=== PATIENT | female | born 1940 | race Caucasian/White ===

== ENCOUNTER → 2019-07-04 | Outpatient (CLI) | payer OTHER ==
[~2019-07-04] MED LIST: ACYCLOVIR400 MG PO; ALBUTEROL0.09 MG/A2 IH; ATIVAN0.5 MG PO; CIPRO250 MG PO; COQ(10)1010 MG PO; DICYCLOMINE HCL10 MG PO; HYDROCODONE BIT1 T11 PO; LEVAQUIN750 MG PO; MACROBID100 M1 PO; METOPROLOL25 MG PO; PREDNICOT20 MG PO; SIMVASTATIN40 MG PO; XANAX0.25 MG PO
== END | disposition home or self-care (01) ==
LOC: RAD 11:36
DX: M51.37 Other intervertebral disc degeneration, lumbosacral region (principal); M85.88 Other specified disorders of bone density and structure, other site

== ENCOUNTER 2019-12-13 20:51 | Emergency (ER) | payer OTHER ==
[~2019-12-13] VITALS: Ht 152.4 cm; Wt 54.4 kg
[2019-12-13 20:57] VITALS: BP 172/88
[2019-12-13 21:21] LABS: BASO % 0.5 % (0.0-1.0); EOS # 0.2 10*3/uL (0.0-0.4); EOS % 1.9 % (1.0-4.0); HEMATOCRIT 40.7 % (37.0-47.0); LYMPH # 2.7 10*3/uL (1.3-4.4); MEAN CELL VOLUME 87.5 fl (81.0-99.0); MEAN CORPUSCULAR HGB CONC 33.2 g/dl (33.0-37.0); MEAN PLATELET VOLUME 9.2 fl (9.6-12.3); MONO # 0.9 10*3/uL (0.1-1.0); MONO % 10.3 % (3.0-9.0); NEUT # 4.7 10*3/uL (2.3-7.9); NEUT % 55.1 % (47.0-73.0); PLATELET COUNT AUTOMATED 264 10*3/uL (130-400); RED BLOOD COUNT 4.65 10*6/uL (4.10-5.10); RED CELL DISTRI WIDTH 12.9 % (0-14.5); WHITE BLOOD COUNT 8.5 10*3/uL (4.8-10.8)
[2019-12-13 21:36] LABS: ALBUMIN 3.6 gm/dl (3.1-4.5); ALKALINE PHOSPHATASE 100 U/L (45-117); BUN 17 mg/dl (7-24); CHLORIDE 101 mmol/L (98-107); CREATININE 0.94 mg/dL (0.55-1.02); POTASSIUM 3.4 mmol/L (3.5-5.1); SGOT/AST 22 IU/L (3-35); SGPT/ALT 17 U/L (12-78); SODIUM 134 mmol/L (136-145); TOTAL PROTEIN 7.1 gm/dL (6.4-8.2); URIC ACID 5.1 mg/dL (2.6-6.0)
[2019-12-13] MEDS ORDERED: INDOMETHACIN50 MG PO (23:01)
== END 2019-12-13 23:22 | disposition home or self-care (01) ==
LOC: ED 20:51
PROVIDERS: Nurse Practitioner Family
DX: M25.571 Pain in right ankle and joints of right foot (principal); I10 Essential (primary) hypertension; E78.00 Pure hypercholesterolemia, unspecified; Z90.710 Acquired absence of both cervix and uterus; Z88.2 Allergy status to sulfonamides; Z79.899 Other long term (current) drug therapy

== ENCOUNTER → 2020-04-14 | Outpatient (CLI) | payer OTHER ==
[~2020-04-14] MED LIST changes: +INDOMETHACIN50 MG PO
[2020-04-14 11:37] LABS: BASO # 0.1 10*3/uL (0.0-0.1); BASO % 0.5 % (0.0-1.0); EOS # 0.1 10*3/uL (0.0-0.4); HEMATOCRIT 43.2 % (37.0-47.0); LYMPH # 1.7 10*3/uL (1.3-4.4); LYMPH % 16.1 % (27.0-41.0); MEAN CELL VOLUME 86.1 fl (81.0-99.0); MEAN CORPUSCULAR HGB 27.9 pg (27.0-31.0); MEAN CORPUSCULAR HGB CONC 32.4 g/dl (33.0-37.0); MONO # 0.7 10*3/uL (0.1-1.0); MONO % 6.4 % (3.0-9.0); NEUT % 75.6 % (47.0-73.0); PLATELET COUNT AUTOMATED 348 10*3/uL (130-400); RED BLOOD COUNT 5.02 10*6/uL (4.10-5.10); RED CELL DISTRI WIDTH 12.4 % (0-14.5); WHITE BLOOD COUNT 10.5 10*3/uL (4.8-10.8)
[2020-04-15 07:06] LABS: HEP B CORE AB, IGM Negative (Negative); HEPATITIS B SURFACE AG Negative (Negative); HEPATITIS C VIRUS ANTIBODY <0.1 s/co (0.0-0.9)
[2020-04-15 08:08] LABS: RHEUMATOID ARTHRITIS FACTOR <10.0 IU/mL (0.0-13.9)
[2020-04-15 13:09] LABS: ANTI-RNP ANTIBODIES <0.2 AI (0.0-0.9)
[2020-04-16 03:06] LABS: CCP ANTIBODIES IGG/IGA 75 units (0-19)
[2020-04-16 16:11] LABS: PTT-LA 35.7 sec (0.0-51.9)
[2020-04-17 08:11] LABS: DVVTMIXRFX CHG; LUPUS DRVVT 55.1 sec (0.0-47.0)
[2020-04-17 09:06] LABS: LUPUS REFLEX INTERPRETATION Comment: (.)
[2020-04-20 12:07] LABS: HLA-B27 ANTIGEN Negative (.)
== END | disposition home or self-care (01) ==
LOC: LAB 10:51
PROVIDERS: ATTEND Orthopaedic Surgery
DX: I10 Essential (primary) hypertension (principal); M19.90 Unspecified osteoarthritis, unspecified site; R70.0 Elevated erythrocyte sedimentation rate; R53.83 Other fatigue

== ENCOUNTER → 2020-09-03 | Outpatient (CLI) | payer OTHER | END | disposition home or self-care (01) | LOC: US 09:27 | PROVIDERS: ATTEND Orthopaedic Surgery | DX: R60.0 Localized edema (principal) ==

== ENCOUNTER 2022-11-15 22:30 | Emergency (ER) | payer OTHER ==
[~2022-11-15] VITALS: Ht 162.5 cm; Wt 74.8 kg
[2022-11-15 22:45] VITALS: BP 169/69
[2022-11-15] MEDS ORDERED: CITALOPRAM40 MG PO (22:57)
[2022-11-15] MEDS ORDERED: LEVETIRACETAM500 MG PO (22:58)
[2022-11-15] MEDS ORDERED: LOSARTAN POTASS25 M1 PO (23:00)
[2022-11-15] MEDS ORDERED: PRAVASTATIN SOD40 MG PO (23:00)
[2022-11-15] MEDS ORDERED: NAPROXEN250 MG PO (23:36)
== END 2022-11-16 00:15 | disposition home or self-care (01) ==
LOC: ED 22:30
DX: S93.401A Sprain of unspecified ligament of right ankle, initial encounter (principal); I10 Essential (primary) hypertension; E78.00 Pure hypercholesterolemia, unspecified; Z88.2 Allergy status to sulfonamides; Z90.710 Acquired absence of both cervix and uterus; Z98.890 Other specified postprocedural states; X50.1XXA Overexertion from prolonged static or awkward postures, initial encounter; Y93.89 Activity, other specified; Y92.009 Unspecified place in unspecified non-institutional (private) residence as the place of occurrence of the external cause; Y99.8 Other external cause status

== ENCOUNTER 2023-03-06 15:55 | Emergency (ER) | payer OTHER ==
[~2023-03-06] VITALS: Ht 154.9 cm; Wt 59.0 kg
[~2023-03-06 15:55] MED LIST changes: +CITALOPRAM40 MG PO; +LEVETIRACETAM500 MG PO; +LOSARTAN POTASS25 M1 PO; +NAPROXEN250 MG PO; +PRAVASTATIN SOD40 MG PO
[2023-03-06] MEDS ORDERED: VITAMIN B-121000 MC1 SL (16:07)
[2023-03-06 16:34] LABS: BASO % 0.6 % (0.0-1.0); EOS # 0.2 10*3/uL (0.0-0.4); EOS % 2.9 % (1.0-4.0); HEMATOCRIT 44.9 % (37.0-47.0); LYMPH # 2.6 10*3/uL (1.3-4.4); LYMPH % 37.9 % (27.0-41.0); MEAN CELL VOLUME 90.7 fl (81.0-99.0); MEAN CORPUSCULAR HGB 29.7 pg (27.0-31.0); MEAN CORPUSCULAR HGB CONC 32.7 g/dl (33.0-37.0); MEAN PLATELET VOLUME 9.6 fl (9.6-12.3); MONO # 0.6 10*3/uL (0.1-1.0); MONO % 8.1 % (3.0-9.0); NEUT # 3.4 10*3/uL (2.3-7.9); NEUT % 50.4 % (47.0-73.0); PLATELET COUNT AUTOMATED 218 10*3/uL (130-400); RED BLOOD COUNT 4.95 10*6/uL (4.10-5.10); RED CELL DISTRI WIDTH 13.2 % (0-14.5); WHITE BLOOD COUNT 6.8 10*3/uL (4.8-10.8)
[2023-03-06 17:02] LABS: ALKALINE PHOSPHATASE 106 U/L (46-116); BUN 13 mg/dl (9-23); CHLORIDE 108 mmol/L (98-107); SGPT/ALT 10 U/L (10-49); TOTAL PROTEIN 6.7 gm/dL (6.0-8.0)
== END 2023-03-06 18:48 | disposition home or self-care (01) ==
LOC: ED 15:55
PROVIDERS: Student in an Organized Health Care Education/Training Program
DX: M25.512 Pain in left shoulder (principal); R07.89 Other chest pain; I10 Essential (primary) hypertension; E78.00 Pure hypercholesterolemia, unspecified; Z88.2 Allergy status to sulfonamides; Z90.710 Acquired absence of both cervix and uterus; Z98.890 Other specified postprocedural states

== ENCOUNTER → 2023-07-19 | Outpatient (CLI) | payer OTHER ==
[~2023-07-19] MED LIST changes: +VITAMIN B-121000 MC1 SL
== END | disposition home or self-care (01) ==
LOC: CARD 13:17
PROVIDERS: ATTEND Internal Medicine
DX: I51.7 Cardiomegaly (principal); R07.9 Chest pain, unspecified

== ENCOUNTER → 2023-07-27 | Outpatient (CLI) | payer OTHER ==
[~2023-07-27] MED LIST changes: +KEPPRA500 MG PO; +Regadenoson 0.4 MG/5 ML SYR IV ONE; +VITAMIN D325 MCG PO
== END | disposition home or self-care (01) ==
LOC: CARD 01:08
PROVIDERS: ATTEND Internal Medicine
DX: R94.31 Abnormal electrocardiogram [ECG] [EKG] (principal); R07.9 Chest pain, unspecified

== ENCOUNTER 2023-10-31 21:34 | Emergency (ER) | payer OTHER ==
[~2023-10-31] VITALS: Ht 160 cm; Wt 59.0 kg
[~2023-10-31 21:34] MED LIST changes: -Regadenoson 0.4 MG/5 ML SYR IV ONE
[2023-10-31 22:08] LABS: BASO % 0.2 % (0.0-1.0); EOS # 0.5 10*3/uL (0.0-0.4); EOS % 4.9 % (1.0-4.0); HEMATOCRIT 40.8 % (37.0-47.0); LYMPH # 3.2 10*3/uL (1.3-4.4); LYMPH % 32.3 % (27.0-41.0); MEAN CELL VOLUME 90.9 fl (81.0-99.0); MEAN CORPUSCULAR HGB 28.7 pg (27.0-31.0); MEAN CORPUSCULAR HGB CONC 31.6 g/dl (33.0-37.0); MEAN PLATELET VOLUME 9.7 fl (9.6-12.3); MONO # 0.7 10*3/uL (0.1-1.0); MONO % 7.5 % (3.0-9.0); NEUT # 5.4 10*3/uL (2.3-7.9); NEUT % 54.9 % (47.0-73.0); PLATELET COUNT AUTOMATED 206 10*3/uL (130-400); RED BLOOD COUNT 4.49 10*6/uL (4.10-5.10); RED CELL DISTRI WIDTH 13.7 % (0-14.5); WHITE BLOOD COUNT 9.8 10*3/uL (4.8-10.8)
[2023-10-31 22:30] LABS: ALKALINE PHOSPHATASE 128 U/L (46-116); BUN 26 mg/dl (9-23); CHLORIDE 108 mmol/L (98-107); SGPT/ALT 10 U/L (5-49); TOTAL PROTEIN 6.4 gm/dL (6.0-8.0)
[2023-10-31 22:31] LABS: ACT PARTIAL THROMBO TIME 23.6 SECONDS (20.0-32.1)
[2023-10-31] MEDS ORDERED: SODIUM CHLORIDE 0.9% 100 ML BAG IV ONE (22:40)
[2023-10-31] MEDS ORDERED: IOHEXOL 350 MG/ML 100 ML VIAL IV ONE (22:40)
[2023-11-01] MEDS ORDERED: hydrALAZINE hydrochloride 20 MG/ML VIAL IV ONE (01:05)
[2023-11-01] MEDS ORDERED: niCARdipine hydrochloride 25 MG in SODIUM CHLORIDE 0.9% 240 ML IV SCH (03:30)
[2023-11-01 05:14] VITALS: BP 119/64
[2023-11-01] MEDS ORDERED: SODIUM CHLORIDE 0.9% 250 ML BAG IV ONE (07:32)
[2023-11-01] MEDS ORDERED: NICARDIPINE IV ONE (07:32)
== END 2023-11-01 05:44 ==
LOC: ED 21:34
PROVIDERS: Emergency Medicine
DX: I71.012 Dissection of descending thoracic aorta (principal); R07.89 Other chest pain; I10 Essential (primary) hypertension; Z88.2 Allergy status to sulfonamides; Z79.899 Other long term (current) drug therapy

== ENCOUNTER 2023-11-23 11:10 | Inpatient (IN) | payer MEDICARE ==
[~2023-11-23] VITALS: Ht 152.4 cm; Wt 56.7 kg
[2023-11-23] VITALS (8 sets, daily range): BP systolic 119–195; BP diastolic 58–95
[2023-11-23] MEDS ORDERED: VALSARTAN80 MG PO (11:29)
[2023-11-23] MEDS ORDERED: ZOLOFT50 MG PO (11:29)
[2023-11-23] MEDS ORDERED: MULTIVITAMINS1 EAC6 PO (11:30)
[2023-11-23] MEDS ORDERED: AMLODIPINE BES2.5 MG PO (11:31)
[2023-11-23] MEDS ORDERED: hydrALAZINE hydrochloride 20 MG/ML VIAL IV ONE (11:45)
[2023-11-23] MEDS ORDERED: LISINOPRIL 20 MG TAB PO ONE (11:50)
[2023-11-23 12:17] LABS: BASO # 0.1 10*3/uL (0.0-0.1); BASO % 1.1 % (0.0-1.0); EOS # 0.4 10*3/uL (0.0-0.4); EOS % 4.8 % (1.0-4.0); HEMATOCRIT 42.2 % (37.0-47.0); LYMPH # 1.6 10*3/uL (1.3-4.4); LYMPH % 20.7 % (27.0-41.0); MEAN CELL VOLUME 91.1 fl (81.0-99.0); MEAN CORPUSCULAR HGB 29.4 pg (27.0-31.0); MEAN CORPUSCULAR HGB CONC 32.2 g/dl (33.0-37.0); MEAN PLATELET VOLUME 9.6 fl (9.6-12.3); MONO # 0.6 10*3/uL (0.1-1.0); NEUT # 5.2 10*3/uL (2.3-7.9); NEUT % 66.1 % (47.0-73.0); PLATELET COUNT AUTOMATED 218 10*3/uL (130-400); RED BLOOD COUNT 4.63 10*6/uL (4.10-5.10); WHITE BLOOD COUNT 7.9 10*3/uL (4.8-10.8)
[2023-11-23 12:40] LABS: BUN 16 mg/dl (9-23); CHLORIDE 107 mmol/L (98-107); POTASSIUM 4.2 mmol/L (3.4-5.1)
[2023-11-23] MEDS ORDERED: Ondansetron Hydrochloride 4 MG/2 ML VIAL IV ONE (12:45)
[2023-11-23] MEDS ORDERED: NEXIUM40 MG PO (19:57)
[2023-11-23] MEDS ORDERED: NAPROSYN500 MG PO (19:58)
[2023-11-23] MEDS ORDERED: NAPROXEN 500 MG TAB PO PRN (20:10)
[2023-11-23] MEDS ORDERED: Metoprolol Tartrate 25 MG TAB PO SCH (22:00)
[2023-11-23] MEDS ORDERED: Losartan Potassium 50 MG TAB PO SCH (22:00)
[2023-11-24 05:50] VITALS: BP 130/60
[2023-11-24 06:14] LABS: BASO # 0.1 10*3/uL (0.0-0.1); BASO % 0.8 % (0.0-1.0); EOS # 0.5 10*3/uL (0.0-0.4); EOS % 6.1 % (1.0-4.0); HEMATOCRIT 39.2 % (37.0-47.0); LYMPH # 2.2 10*3/uL (1.3-4.4); MEAN CORPUSCULAR HGB 28.9 pg (27.0-31.0); MEAN CORPUSCULAR HGB CONC 31.4 g/dl (33.0-37.0); MEAN PLATELET VOLUME 9.6 fl (9.6-12.3); MONO # 0.7 10*3/uL (0.1-1.0); MONO % 8.8 % (3.0-9.0); PLATELET COUNT AUTOMATED 186 10*3/uL (130-400); RED BLOOD COUNT 4.26 10*6/uL (4.10-5.10); RED CELL DISTRI WIDTH 14.4 % (0-14.5); WHITE BLOOD COUNT 7.4 10*3/uL (4.8-10.8)
[2023-11-24 06:48] LABS: POTASSIUM 4.4 mmol/L (3.4-5.1)
[2023-11-24 07:30] VITALS: BP 121/74
[2023-11-24] MEDS ORDERED: amLODIPine besylate 5 MG TAB PO SCH (10:00)
[2023-11-24] MEDS ORDERED: Pantoprazole Sodium 40 MG TAB PO SCH (10:00)
[2023-11-24] MEDS ORDERED: Sertraline Hydrochloride 50 MG TAB PO SCH (10:00)
[2023-11-24] MEDS ORDERED: LEVETIRACETAM 500 MG TAB PO SCH (10:00)
[2023-11-24 10:02] VITALS: BP 133/59
[2023-11-24 12:00] VITALS: BP 107/59
[2023-11-24] MEDS ORDERED: LOSARTAN POTASS50 M1 PO (13:58)
[2023-11-24] MEDS ORDERED: AMLODIPINE BESYL5 MG PO (13:59)
== END 2023-11-24 14:37 | disposition home or self-care (01) | DRG 304 ==
LOC: ED 11:10 → EDHOLD 13:46
PROVIDERS: Nurse Practitioner Family; ADMIT Internal Medicine; ATTEND Internal Medicine
DX: I16.0 Hypertensive urgency (principal); I71.012 Dissection of descending thoracic aorta; N39.0 Urinary tract infection, site not specified; F33.0 Major depressive disorder, recurrent, mild; M54.12 Radiculopathy, cervical region; F41.9 Anxiety disorder, unspecified; M25.571 Pain in right ankle and joints of right foot; S93.401A Sprain of unspecified ligament of right ankle, initial encounter; M10.9 Gout, unspecified; M25.512 Pain in left shoulder; R00.1 Bradycardia, unspecified; I10 Essential (primary) hypertension; K21.00 Gastro-esophageal reflux disease with esophagitis, without bleeding; G40.909 Epilepsy, unspecified, not intractable, without status epilepticus; M47.896 Other spondylosis, lumbar region; Z88.2 Allergy status to sulfonamides; Z90.710 Acquired absence of both cervix and uterus; Y93.89 Activity, other specified; Y92.89 Other specified places as the place of occurrence of the external cause; Y99.8 Other external cause status

== ENCOUNTER 2024-03-12 17:35 | Emergency (ER) | payer MEDICARE ==
[~2024-03-12] VITALS: Ht 154.9 cm; Wt 56.7 kg
[~2024-03-12 17:35] MED LIST changes: +AMLODIPINE BES2.5 MG PO; +AMLODIPINE BESYL5 MG PO; +LOSARTAN POTASS50 M1 PO; +MULTIVITAMINS1 EAC6 PO; +NAPROSYN500 MG PO; +NEXIUM40 MG PO; +VALSARTAN80 MG PO; +ZOLOFT50 MG PO
[2024-03-12] MEDS ORDERED: LORazepam 1 MG TAB PO ONE (18:00)
[2024-03-12 18:40] LABS: BASO % 0.5 % (0.0-1.0); EOS # 0.2 10*3/uL (0.0-0.4); EOS % 2.6 % (1.0-4.0); HEMATOCRIT 37.6 % (37.0-47.0); LYMPH # 2.4 10*3/uL (1.3-4.4); LYMPH % 29.2 % (27.0-41.0); MEAN CELL VOLUME 89.1 fl (81.0-99.0); MEAN CORPUSCULAR HGB 28.2 pg (27.0-31.0); MEAN CORPUSCULAR HGB CONC 31.6 g/dl (33.0-37.0); MEAN PLATELET VOLUME 9.3 fl (9.6-12.3); MONO # 0.7 10*3/uL (0.1-1.0); MONO % 8.3 % (3.0-9.0); NEUT % 59.3 % (47.0-73.0); PLATELET COUNT AUTOMATED 245 10*3/uL (130-400); RED BLOOD COUNT 4.22 10*6/uL (4.10-5.10); RED CELL DISTRI WIDTH 13.2 % (0-14.5); WHITE BLOOD COUNT 8.4 10*3/uL (4.8-10.8)
[2024-03-12 18:50] LABS: ACT PARTIAL THROMBO TIME 24.8 SECONDS (20.0-32.1)
[2024-03-12 19:06] LABS: POTASSIUM 3.4 mmol/L (3.4-5.1); TOTAL PROTEIN 6.9 gm/dL (6.0-8.0)
[2024-03-12 19:43] VITALS: BP 141/59
== END 2024-03-12 21:32 | disposition home or self-care (01) ==
LOC: ED 17:35
PROVIDERS: Internal Medicine
DX: F41.9 Anxiety disorder, unspecified (principal); I12.9 Hypertensive chronic kidney disease with stage 1 through stage 4 chronic kidney disease, or unspecified chronic kidney disease; N18.31 Chronic kidney disease, stage 3a; E78.00 Pure hypercholesterolemia, unspecified; Z88.2 Allergy status to sulfonamides; Z90.710 Acquired absence of both cervix and uterus; Z98.890 Other specified postprocedural states

== ENCOUNTER 2024-08-10 09:33 | Emergency (ER) | payer MEDICARE ==
[~2024-08-10] VITALS: Ht 154.9 cm; Wt 56.7 kg
[2024-08-10 09:48] VITALS: BP 114/73
[2024-08-10] MEDS ORDERED: XANAX0.25 MG PO (09:55)
[2024-08-10] MEDS ORDERED: SODIUM CHLORIDE 0.9% 1,000 ML IV ONE (09:55)
[2024-08-10 10:08] LABS: BASO % 0.7 % (0.0-1.0); EOS # 0.2 10*3/uL (0.0-0.4); MEAN CELL VOLUME 88.2 fl (81.0-99.0); MEAN CORPUSCULAR HGB 28.2 pg (27.0-31.0); MEAN PLATELET VOLUME 9.5 fl (9.6-12.3); MONO # 0.7 10*3/uL (0.1-1.0); MONO % 11.5 % (3.0-9.0); NEUT # 3.8 10*3/uL (2.3-7.9); NEUT % 62.9 % (47.0-73.0); PLATELET COUNT AUTOMATED 190 10*3/uL (130-400); RED BLOOD COUNT 4.65 10*6/uL (4.10-5.10); RED CELL DISTRI WIDTH 14.5 % (0-14.5); WHITE BLOOD COUNT 6.1 10*3/uL (4.8-10.8)
[2024-08-10 10:32] LABS: BUN 13 mg/dl (9-23); CHLORIDE 104 mmol/L (98-107)
[2024-08-10] MEDS ORDERED: AVPAK AZITHROM250 M1 PO (11:45)
== END 2024-08-10 11:51 | disposition home or self-care (01) ==
LOC: ED 09:33
PROVIDERS: Emergency Medicine
DX: J40 Bronchitis, not specified as acute or chronic (principal); Z20.822 Contact with and (suspected) exposure to COVID-19; E78.5 Hyperlipidemia, unspecified; E78.00 Pure hypercholesterolemia, unspecified; I12.9 Hypertensive chronic kidney disease with stage 1 through stage 4 chronic kidney disease, or unspecified chronic kidney disease; N18.9 Chronic kidney disease, unspecified; Z88.2 Allergy status to sulfonamides; Z90.710 Acquired absence of both cervix and uterus; Z98.890 Other specified postprocedural states

== ENCOUNTER 2025-03-09 15:47 | Emergency (ER) | payer MEDICARE ==
[~2025-03-09] VITALS: Ht 152.4 cm; Wt 54.9 kg
[~2025-03-09 15:47] MED LIST changes: +AVPAK AZITHROM250 M1 PO
[2025-03-09] MEDS ORDERED: IOHEXOL 300 MG/ML 100 ML VIAL IV ONE (16:05)
[2025-03-09 16:17] LABS: BASO # 0.1 10*3/uL (0.0-0.1); BASO % 0.6 % (0.0-1.0); EOS # 0.1 10*3/uL (0.0-0.4); EOS % 1.3 % (1.0-4.0); MEAN CELL VOLUME 90.0 fl (81.0-99.0); MEAN CORPUSCULAR HGB 28.8 pg (27.0-31.0); MEAN PLATELET VOLUME 9.3 fl (9.6-12.3); MONO # 0.8 10*3/uL (0.1-1.0); MONO % 9.2 % (3.0-9.0); NEUT # 5.8 10*3/uL (2.3-7.9); NEUT % 64.6 % (47.0-73.0); NUCLEATED RED BLOOD CELL 0.0 % (0.0-0.0); NUCLEATED RED BLOOD CELL 0.0 10*3/uL (0.0-0.0); PLATELET COUNT AUTOMATED 186 10*3/uL (130-400); RED CELL DISTRI WIDTH 13.9 % (0-14.5)
[2025-03-09 16:28] LABS: ACT PARTIAL THROMBO TIME 23.7 SECONDS (20.0-32.1)
[2025-03-09] MEDS ORDERED: IOHEXOL 350 MG/ML 100 ML VIAL IV ONE (16:32)
[2025-03-09] MEDS ORDERED: SODIUM CHLORIDE 0.9% 100 ML IV ONE (16:32)
[2025-03-09 16:38] LABS: BUN 16 mg/dl (9-23); SGPT/ALT 11 U/L (5-49)
[2025-03-09 19:35] VITALS: BP 121/65
== END 2025-03-09 19:58 | disposition home or self-care (01) ==
LOC: ED 15:47
PROVIDERS: Nurse Practitioner Family
DX: I71.40 Abdominal aortic aneurysm, without rupture, unspecified (principal); I74.10 Embolism and thrombosis of unspecified parts of aorta; I12.9 Hypertensive chronic kidney disease with stage 1 through stage 4 chronic kidney disease, or unspecified chronic kidney disease; N18.31 Chronic kidney disease, stage 3a; E78.5 Hyperlipidemia, unspecified; F41.9 Anxiety disorder, unspecified; Z88.2 Allergy status to sulfonamides; Z79.899 Other long term (current) drug therapy; Z90.710 Acquired absence of both cervix and uterus